=== PATIENT | female | born 1925 | race Caucasian/White ===

== ENCOUNTER → 2016-11-30 | Outpatient (CLI) | payer MEDICARE, OTHER ==
[~2016-11-30] MED LIST: CAR3125T PO; PACERONE PO; PANTPAK PO; PRAVASTATIN PO; RALO60TA10 PO; WARF2.5T PO; WARF5TAB PO
[2016-11-30 11:49] LABS: Basophils # (auto) 0 uL; Basophils % (auto) 0.7 % (0.0-2.0); Eosinophils # (auto) 0.2 uL; Eosinophils % (auto) 3.6 % (0.0-7.0); Hematocrit 35.2 % (36.0-46.0); Hemoglobin 11.7 g/dL (12.2-16.2); Lymphocytes # (auto) 1.2 uL; Lymphocytes % (auto) 24.2 % (10.0-50.0); Mean Corpuscular Hemoglobin 33.2 pg (28.0-32.0); Mean Corpuscular Hgb Conc. 33.4 g/dL (32.0-36.0); Mean Corpuscular Volume 99.5 fL (80.0-100.0); Mean Platelet Volume 8.1 fL (7.4-10.4); Monocytes # (auto) 0.3 uL; Monocytes % (auto) 6.6 % (0.0-12.0); Neutrophils # (auto) 3.3 uL; Neutrophils % (auto) 64.9 % (37.0-80.0); Platelet Count (auto) 165 10^3/uL (140-450); Red Cell Distribution Width 13.8 % (11.6-16.0)
[2016-11-30 11:50] LABS: Urine Bilirubin Negative (Negative); Urine Glucose Normal (Normal); Urine Ketone Negative (Negative); Urine Nitrite Negative (Negative); Urine RBC 15 /hpf (0 - 4); Urine Squamous Epithelial Cell FEW /hpf (<5); Urine Urobilinogen Normal (Negative); Urine pH 6.5 (5.0-8.0)
[2016-11-30 11:55] LABS: Urine Blood 2+ /uL (Negative); Urine Color Straw (Yellow)
[2016-11-30 12:06] LABS: BUN/Creatinine Ratio 24.2; Calcium 9.6 mg/dL (8.5-10.1); Phosphorus 3.4 mg/dL (2.6-4.90); Potassium 4.2 mmol/L (3.5-5.1); Uric Acid 4.9 mg/dL (2.6-6.0)
== END | disposition home or self-care (01) ==
LOC: LAB 10:32
PROVIDERS: ATTEND Internal Medicine
DX: E21.3 Hyperparathyroidism, unspecified (principal); M10.9 Gout, unspecified; R80.9 Proteinuria, unspecified; E55.9 Vitamin D deficiency, unspecified; N18.3 Chronic kidney disease, stage 3 (moderate); D63.1 Anemia in chronic kidney disease; E78.5 Hyperlipidemia, unspecified
CPT/HCPCS: 36415; 80069; 81001; 82306; 82570; 83970; 84156; 84550; 85025

== ENCOUNTER → 2017-04-12 | Outpatient (CLI) | payer MEDICARE, OTHER | END | disposition home or self-care (01) | LOC: XY 10:04 | PROVIDERS: ATTEND Internal Medicine Cardiovascular Disease | DX: I65.23 Occlusion and stenosis of bilateral carotid arteries (principal); R55 Syncope and collapse; R09.89 Other specified symptoms and signs involving the circulatory and respiratory systems | CPT/HCPCS: 93886 ==